=== PATIENT | male | born 1955 | race Caucasian/White ===

== ENCOUNTER → 2024-07-05 06:34 | Outpatient (REF) | payer MEDICARE, BC, SELFPAY | LOC: MRI 06:34 | PROVIDERS: ATTENDING PHYSICIAN Specialist; FAMILY PHYSICIAN Family Medicine | DX: M25.551 Pain in right hip (principal) | CPT/HCPCS: 72148; 73721 ==

== ENCOUNTER 2024-12-20 06:19 | Day surgery (SDC) | payer MEDICARE, BC, SELFPAY | END 2024-12-20 10:33 | disposition home or self-care (01) | LOC: GI 06:19 | PROVIDERS: ATTENDING PHYSICIAN Surgery | DX: Z12.11 Encounter for screening for malignant neoplasm of colon (principal); Z86.0100 Personal history of colon polyps, unspecified; K57.30 Diverticulosis of large intestine without perforation or abscess without bleeding | CPT/HCPCS: G0105 ==